=== PATIENT | male | born 1935 | race Caucasian/White ===

== ENCOUNTER 2017-04-13 14:35 | Emergency (ER) | payer MEDICARE ==
[2017-04-13 15:40] LABS: ABS Basophils 0.1 10^3/ul (0-0.2); ABS Eosinophils 0.2 10^3/ul (0-0.6); ABS Lymphocytes 1.1 10^3/ul (1.0-4.8); ABS Neutrophils 7.7 10^3/ul (1.5-7.7); ABS Nucleated RBC 0 10^3/ul; Eosinophil % 2.1 % (0-6); Hematocrit 34 % (42-52); Hemoglobin 11.7 g/dl (14.0-18.0); Lymphocyte % 10.6 % (25-47); Mean Corpuscular HGB Conc 34 g/dl (31-36); Mean Corpuscular Hemoglobin 33 pg (27-31); Mean Corpuscular Volume 96 fL (80-94); Mean Platelet Volume 7 um3 (7.4-10.4); Nucleated Red Blood Cells % 0; Platelet Count 382 10^3/ul (150-450); Red Blood Count 3.55 10^6/ul (4.0-5.4); Red Cell Distribution Width 14 % (10.5-15); White Blood Count 10.1 10^3/ul (3.5-10.8)
[2017-04-13 15:53] LABS: INR 0.9 (0.77-1.02)
[2017-04-13 15:57] LABS: EGFR Non-African American 10.3 (>60)
--- NOTE | 2017-04-13 15:57 | RAD ---
Indication: Confusion, facial droop. Possible stroke. Comparison: No relevant prior exams available on the [facility] – [place], [place] PACS for comparison. Technique: Noncontrast CT vertex of skull through foramen magnum. Report: Mild prominence of the cerebral sulci. Unremarkable ventricles and basal cisterns. Subtle decreased density in the periventricular and subcortical white matter most prominent at the RIGHT parietal lobe while non-specific is most likely due to chronic microangiopathy. Negative for celeste matter white matter obscuration, intra or extra-axial hemorrhage, or mass effect. Unremarkable orbital contents. Negative for suspicious calvarial or skull base lesion. 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 RIGHT mastoid effusion and cortical thickening consistent with chronic mastoiditis. Clear LEFT mastoid air spaces. Grossly clear visualized paranasal sinuses. Variant pneumatization of the RIGHT middle nasal turbinate. Unremarkable scalp. IMPRESSION: 1. Negative for intracranial hemorrhage or compelling CT stigmata of ischemic stroke. 2. Mild involutional change and stigmata of chronic small vessel ischemic disease. 3. Chronic RIGHT mastoiditis.
[2017-04-13] MEDS ORDERED: NS 0.9% 1000 ML* 1,000 ML IV ONE (16:08)
[2017-04-13 16:48] LABS: Urine Appearance Cloudy; Urine Blood Negative (Negative); Urine Color Yellow; Urine Ketones Negative (Negative); Urine Protein Negative (Negative); Urine Urobilinogen Negative (Negative)
--- NOTE | 2017-04-13 17:23 | RAD ---
Indication: Left upper quadrant pain, left flank pain. CT of abdomen and pelvis was performed without oral or IV contrast. Coronal and sagittal reconstructed images were obtained. The lung bases demonstrate no pleural fluid, nodules or masses. Heart is of normal size without evidence of pericardial effusion. Some scarring is noted in the left medial lung base. No pleural fluid is identified. The liver is normal in size. No focal lesions or intrahepatic ductal dilatation is noted. The spleen is normal in size. No focal masses are noted. The pancreas demonstrates no mass or pancreatic duct dilatation. The common duct is not dilated. Gallbladder demonstrates questionable gallstones. No pericholecystic fluid or wall thickening is noted. No adrenal lesions are noted. The kidneys demonstrates no hydronephrosis of either kidney. Atherosclerotic aorta is noted. Small retroperitoneal lymph nodes the largest in the interaortocaval space measures up to 7 mm. No dilated loops of bowel are noted. The colon is filled with stool. There is a distended stomach noted. There is suggestion of some wall thickening of the antrum of the stomach or the proximal duodenum. There is some infiltration of fat surrounding the antrum or duodenum. The possibility of peptic ulcer disease or antral gastritis should BE considered. The small bowel demonstrates no abnormal dilatation. Surgical clips at the base of the cecum are noted presumably from appendectomy. Patient has had prior colon resection. Diverticulosis without definite evidence of diverticulitis. The prostate is enlarged with a Gomez catheter in place. No hernias are noted. IMPRESSION: No evidence of obstructive uropathy is noted. There is wall thickening at the antrum of the stomach or first portion of the duodenum with infiltration of fat surrounding this portion of the antrum or duodenum. Inflammatory process such as antral gastritis or peptic ulcer disease should BE considered. Clinical correlation is suggested. Gomez catheter in place within the urinary bladder.
[2017-04-13 19:13] VITALS: BP 142/65
--- NOTE | 2017-04-13 19:17 | ED ---
Lorne Gracia Stephanie, scribed for Zay Dillon MD on 04/13/17 at 1630 . Complex/Multi-Sys Presentation - HPI Summary HPI Summary: The pt is an 82 y/o M presenting to the ED with c/o intermittent heart burn that began 1 month ago. Symptoms include decreased appetite and oral intake, weight loss, walking like a drunken prize jacker, and changes in speech. Per , the pt is speaking softer and his words are more slurred than usual. The pt denies current back pain, dizziness, groin pain. The pt reports small amounts of urination at baseline. The pt has history of an enlarged prostate. - History Of Current Complaint Chief Complaint: EDNeurologicalDeficit Time Seen by Provider: 04/13/17 16:05 Hx Obtained From: Patient, Family/Oncology Physician Assistant - , [id number] Onset/Duration: Gradual Onset, Lasting Weeks - 4, Still Present Timing: Intermittent, Lasting: Associated Signs And Symptoms: Positive: Other - decreased appetite and oral intake, weight loss, walking like a drunken prize jacker, and changes in speech. Negative:back pain, dizziness, groin pain - Allergies/Home Medications Allergies/Adverse Reactions: Allergies Allergy/AdvReac Type Severity Reaction Status Date / Time Sulfa Antibiotics Allergy RASH ON Verified 06/05/14 14:04 CHEST Home Medications: Home Medications Ciclopirox [Ciclopirox Treatment] 1 kit TOPICAL BEDTIME 04/13/17 [History Confirmed 04/13/17] Cranberry (Vaccinium Oxycoccus [Cranberry Extract] 200 mg PO DAILY 04/13/17 [ History Confirmed 04/13/17] Finasteride TAB* [Proscar TAB*] 5 mg PO DAILY 04/13/17 [History Confirmed ] Hydrochlorothiazide TAB* [Hydrodiuril TAB*] 12.5 mg PO DAILY 04/13/17 [History Confirmed 04/13/17] Ipratropium Odessa (Nasal) [Ipratropium Od[place]] 2 spray NASAL BID 04/13/17 [ History Confirmed 04/13/17] Lisinopril/HCTZ 20/12.5(NF) [Zestoretic 20/12.5(NF)] 1 tab PO DAILY 04/13/17 [ History Confirmed 04/13/17] Misc Natural Products [Red Wine Extract] 1 cap PO DAILY 04/13/17 [History Confirmed 04/13/17] Multiple Vitamins W/ Minerals [Centrum Silver 50+Men] 1 tab PO DAILY 04/13/17 [ History Confirmed 04/13/17] Tavaborole [Kerydin] 5 % TOPICAL DAILY 04/13/17 [History Confirmed 04/13/17] Valerian (Valeriana Officinali [Valerian Root] 250 mg PO DAILY 04/13/17 [ History Confirmed 04/13/17] PMH/Surg Hx/FS Hx/Imm Hx Cardiovascular History: Reports: Hx Hypertension GI History: Reports: Other GI Disorders - DYSPLASTIC POLYP OF SIGMOID COLON; POLYP OF CECUM History: Reports: Hx Kidney Stones - YEARS AGO Musculoskeletal History: Reports: Hx Arthritis - BILATERAL SHOULDERS, Hx Rheumatoid Arthritis Sensory History: Reports: Hx Contacts or Glasses - READING GLASS Denies: Hx Hearing Aid Opthamlomology History: Reports: Hx Contacts or Glasses - READING GLASS Psychiatric History: Reports: Hx Anxiety - VERY ANXIOUS ABOUT SURGERY - Surgical History Surgery Procedure, Year, and Place: appendix removed 1960 Hx Anesthesia Reactions: No Infectious Disease History: No Infectious Disease History: Denies: Traveled Outside the [place] in Last 30 Days - Family History Known Family History: Positive: Other - schizophrenia, bipolar disorder - Social History Occupation: Retired Lives: With Family Alcohol Use: Occasionally Alcohol Amount: 2 cans a day until 2 weeks ago Substance Use Type: Reports: None Smoking Status (MU): Never Smoked Tobacco Review of Systems Negative: Fever, Chills Negative: Erythema Negative: Sore Throat Negative: Chest Pain Negative: Shortness Of Breath, Cough Positive: Other - decreased appetite and oral intake, weight loss. Negative: Abdominal Pain, Vomiting, Nausea Negative: dysuria, hematuria Negative: Myalgia, Edema Negative: Rash Neurological: Other - difficulty with ambulation. Negative: dizziness Positive: Slurred Speech All Other Systems Reviewed And Are Negative: Yes Physical Exam - Summary Physical Exam Summary: Constitutional: Well-developed, Well-nourished, Alert. (-) Distressed, negative chvostek's sign Skin: Warm, Dry HENT: Normocephalic; Atraumatic Eyes: Conjunctiva normal Neck: Musculoskeletal ROM normal neck. (-) JVD, (-) Stridor, (-) Tracheal deviation Cardio: Rhythm regular, rate normal, Heart sounds normal; Intact distal pulses; The pedal pulses are 2+ and symmetric. Radial pulses are 2+ and symmetric. (-) Murmur Pulmonary/Chest wall: Effort normal. (-) Respiratory distress, (-) Wheezes, (-) Rales Abd: Soft, (-) Tenderness, (-) Distension, (-) Guarding, (-) Rebound Musculoskeletal: (-) Edema Lymph: (-) Cervical adenopathy Neuro: Alert, Oriented x3 Psych: Mood and affect Normal Triage Information Reviewed: Yes Vital Signs On Initial Exam: Initial Vitals Temp Pulse Resp BP Pulse Ox 97.7 F 74 18 134/63 98 04/13/17 14:42 04/13/17 14:42 04/13/17 14:42 04/13/17 14:42 04/13/17 14:42 Vital Signs Reviewed: Yes Diagnostics - Vital Signs Vital Signs Temp Pulse Resp BP Pulse Ox 04/13/17 14:42 97.7 F 74 18 134/63 98 - Laboratory Lab Results: Lab Results 04/13/17 04/13/17 04/13/17 Range/Units 15:29 15:29 15:29 WBC 10.1 (3.5-10.8) 10^3/ul RBC 3.55 L (4.0-5.4) 10^6/ul Hgb 11.7 L (14.0-18.0) g/dl Hct 34 L (42-52) % MCV 96 H (80-94) fL MCH 33 H (27-31) pg MCHC 34 (31-36) g/dl RDW 14 (10.5-15) % Plt Count 382 (150-450) 10^3/ul MPV 7 L (7.4-10.4) um3 Neut % (Auto) 76.2 (38-83) % Lymph % (Auto) 10.6 L (25-47) % Hettinger % (Auto) 10.2 H (1-9) % Eos % (Auto) 2.1 (0-6) % Baso % (Auto) 0.9 (0-2) % Absolute Neuts (auto) 7.7 (1.5-7.7) 10^3/ul Absolute Lymphs (auto) 1.1 (1.0-4.8) 10^3/ul Absolute Monos (auto) 1.0 H (0-0.8) 10^3/ul Absolute Eos (auto) 0.2 (0-0.6) 10^3/ul Absolute Basos (auto) 0.1 (0-0.2) 10^3/ul Absolute Nucleated RBC 0 10^3/ul Nucleated RBC % 0 INR (Anticoag Therapy) 0.90 (0.77-1.02) Sodium 130 L (133-145) mmol/L Potassium 4.1 (3.5-5.0) mmol/L Chloride 89 L (101-111) mmol/L Carbon Dioxide 37 H (22-32) mmol/L Anion Gap 4 (2-11) mmol/L BUN 73 H (6-24) mg/dL Creatinine 5.38 H (0.67-1.17) mg/dL Est GFR ( Amer) 13.3 (>60) Est GFR (Non-Af Amer) 10.3 (>60) BUN/Creatinine Ratio 13.6 (8-20) Glucose 135 H (70-100) mg/dL Lactic Acid (0.5-2.0) mmol/L Calcium 16.0 H* (8.6-10.3) mg/dL Total Bilirubin 0.30 (0.2-1.0) mg/dL AST 16 (13-39) U/L ALT 9 (7-52) U/L Alkaline Phosphatase 55 (34-104) U/L Troponin I 0.02 (<0.04) ng/mL Total Protein 7.0 (6.4-8.9) g/dL Albumin 3.3 (3.2-5.2) g/dL Globulin 3.7 (2-4) g/dL Albumin/Globulin Ratio 0.9 L (1-3) 04/13/17 Range/Units 15:29 WBC (3.5-10.8) 10^3/ul RBC (4.0-5.4) 10^6/ul Hgb (14.0-18.0) g/dl Hct (42-52) % MCV (80-94) fL MCH (27-31) pg MCHC (31-36) g/dl RDW (10.5-15) % Plt Count (150-450) 10^3/ul MPV (7.4-10.4) um3 Neut % (Auto) (38-83) % Lymph % (Auto) (25-47) % Hettinger % (Auto) (1-9) % Eos % (Auto) (0-6) % Baso % (Auto) (0-2) % Absolute Neuts (auto) (1.5-7.7) 10^3/ul Absolute Lymphs (auto) (1.0-4.8) 10^3/ul Absolute Monos (auto) (0-0.8) 10^3/ul Absolute Eos (auto) (0-0.6) 10^3/ul Absolute Basos (auto) (0-0.2) 10^3/ul Absolute Nucleated RBC 10^3/ul Nucleated RBC % INR (Anticoag Therapy) (0.77-1.02) Sodium (133-145) mmol/L Potassium (3.5-5.0) mmol/L Chloride (101-111) mmol/L Carbon Dioxide (22-32) mmol/L Anion Gap (2-11) mmol/L BUN (6-24) mg/dL Creatinine (0.67-1.17) mg/dL Est GFR ( Amer) (>60) Est GFR (Non-Af Amer) (>60) BUN/Creatinine Ratio (8-20) Glucose (70-100) mg/dL Lactic Acid 1.2 (0.5-2.0) mmol/L Calcium (8.6-10.3) mg/dL Total Bilirubin (0.2-1.0) mg/dL AST (13-39) U/L ALT (7-52) U/L Alkaline Phosphatase (34-104) U/L Troponin I (<0.04) ng/mL Total Protein (6.4-8.9) g/dL Albumin (3.2-5.2) g/dL Globulin (2-4) g/dL Albumin/Globulin Ratio (1-3) Result Diagrams: 04/13/17 15:29 04/13/17 15:29 Lab Statement: Any lab studies that have been ordered have been reviewed, and results considered in the medical decision making process. - CT Brain CT Interpretation: No Acute Changes CT Interpretation Completed By: Radiologist - Patient Name: ARNIE PALMA Medical Record#: [id number] 1. Negative for intracranial hemorrhage or compelling CT stigmata of ischemic stroke. 2. Mild involutional change and stigmata of chronic small vessel ischemic disease. 3. Chronic RIGHT mastoiditis. Abdomen/Pelvis CT Interpretation: Positive (See Comments) CT Interpretation Completed By: Radiologist - No evidence of obstructive uropathy is noted. There is wall thickening at the antrum of the stomach or first portion of the duodenum with infiltration of fat surrounding this portion of the antrum or duodenum. Inflammatory process such as antral gastritis or peptic ulcer disease should BE considered. Clinical correlation is suggested. Marquez catheter in place within the urinary bladder. - EKG 16:12 EKG Rhythm: Sinus Rhythm - 73 BPM EKG Interpretation: No STEMI Complex Multi-Symp Course/Dx Course Of Treatment: The pt has obstructive uropathy vs metastatic renal failure. Initiated IV fluid therapy for hypercalcemia. Pts family demanded pt to be transported to [facility]. The pt was accepted by Dr. Ponce at [facility]. No urinary retention evident with marquez - Diagnoses Provider Diagnoses: Acute renal failure, Hypercalcemia, suspected metastatic disease Discharge - Discharge Plan Condition: Stable Disposition: TRANS HIGHER LVL OF CARE FAC Referrals: Javier Cason MD [Primary Care Provider] - The documentation as recorded by the Lorne fierro Stephanie accurately reflects the service I personally performed and the decisions made by , Zay Dillon MD.
== END 2017-04-13 20:10 | disposition short-term general hospital (02) ==
LOC: ED 14:35
DX: N19 Unspecified kidney failure (principal); E83.52 Hypercalcemia
CPT/HCPCS: 36415; 70450; 74176; 80053; 81003; 83605; 84484; 85025; 85610; 93005; 96360; 99282